=== PATIENT | male | born 1955 | race Caucasian/White ===

== ENCOUNTER → 2020-08-24 | Outpatient (CLI) | payer OTHER ==
[~2020-08-24] MED LIST: BYSTOLIC5 MG PO; FINASTERIDE PO; FINASTERIDE5 MG PO; TESTOPEL75 MG
== END ==
LOC: SLEEP 18:23
PROVIDERS: ATTEND Otolaryngology
DX: G47.33 Obstructive sleep apnea (adult) (pediatric) (principal); Z11.59 Encounter for screening for other viral diseases
CPT/HCPCS: 95806; U0002

== ENCOUNTER 2021-01-21 18:30 | Inpatient (IN) | payer OTHER ==
[~2021-01-21] VITALS: Ht 193 cm; Wt 141.6 kg
[2021-01-21] MEDS ORDERED: LEVOTHYROXINE50 MCG PO (18:48)
[2021-01-21] MEDS ORDERED: AMLODIPINE BESY10 MG PO (18:48)
[2021-01-21] MEDS ORDERED: HYDROCHLOROTHIA50 MG (18:48)
[2021-01-21] MEDS ORDERED: SODIUM CHLORIDE 0.9% 1000ML 1,000 ML IV STA (20:27)
[2021-01-21] MEDS ORDERED: METHYLPREDNISOLONE SOD SUCC 125 MG/2ML VIAL IV ONE (20:30)
[2021-01-21] MEDS ORDERED: CEFTRIAXONE SOD 1 GM/50 ML BAG IV ONE (20:30)
[2021-01-21] MEDS ORDERED: CEFTRIAXONE SOD 1 GM VIAL ONE (20:38)
[2021-01-21] MEDS ORDERED: SODIUM CHLORIDE 0.9% 50ML 50 ML ONE (20:39)
[2021-01-21] MEDS ORDERED: METHYLPREDNISOLONE SOD SUCC 125 MG/2ML VIAL ONE (20:42)
[2021-01-21] MEDS ORDERED: ACETAMINOPHEN 325 MG TAB PO ONE (20:45)
[2021-01-21] MEDS ORDERED: CEFTRIAXONE SOD 1 GM in SODIUM CHLORIDE 0.9% 50ML 50 ML IV ONE (20:45)
[2021-01-21] MEDS ORDERED: ONDANSETRON HCL INJ 2MG/ML 2ML 2 MG/ML VIAL IV PRN (21:00)
[2021-01-21] MEDS: CEFTRIAXONE SOD 1 GM in SODIUM CHLORIDE 0.9% 50ML 50 ML IV SCH (21:15)
[2021-01-21] MEDS ORDERED: CEFTRIAXONE SOD 1 GM/50 ML BAG IV SCH (21:15)
[2021-01-21] MEDS ORDERED: ACETAMINOPHEN 325 MG TAB ONE (21:16)
[2021-01-21 22:30] VITALS: BP 159/84
[2021-01-21] MEDS: SODIUM CHLORIDE 0.9% 1000ML 1,000 ML IV SCH (22:40)
[2021-01-21] MEDS ORDERED: LEVOTHYROXINE75 MCG PO (23:32)
[2021-01-21] MEDS ORDERED: XYOSTED100 MG/0.5 SC (23:32)
[2021-01-21] MEDS ORDERED: MONTELUKAST SOD10 MG PO (23:32)
[2021-01-22] VITALS (7 sets, daily range): BP systolic 127–154; BP diastolic 75–95
[2021-01-22] MEDS: SODIUM CHLORIDE 0.9% 1000ML 1,000 ML IV SCH (06:13)
[2021-01-22] MEDS ORDERED: HYDROCHLOROTH12.5 MG PO (07:10)
[2021-01-22 07:43] LABS: HEMATOCRIT 46.1 % (38.2-49.6); HEMOGLOBIN 14.9 g/dL (14.0-18.0); LYMPHOCYTES # (AUTO) 0.3 (1.0-3.2); LYMPHOCYTES % 17.3 % (18.0-39.1); MEAN CORPUSCULAR HEMOGLOBIN 26.1 pg (28-32); MEAN CORPUSCULAR HGB CONC 32.3 g/dL (31-35); MEAN CORPUSCULAR VOLUME 80.9 fL (81-99); MONOCYTES # (AUTO) 0.2 (0.2-0.8); MONOCYTES % 10.7 % (4.4-11.3); NEUTROPHILS # (AUTO) 1.1 (2.1-6.9); NEUTROPHILS % 70.7 % (38.7-80.0); PLATELET COUNT 174 x10e3/uL (140-360); RED CELL DISTRIBUTION WIDTH 13.3 % (11.7-14.4)
[2021-01-22 08:00] LABS: ALANINE AMINOTRANSFERASE 33 IU/L (0-55); ALBUMIN/GLOBULIN RATIO 0.8 (0.8-2.0); ALKALINE PHOSPHATASE 75 IU/L (40-150); ANION GAP 16.2 mmol/L (8-16); BLOOD UREA NITROGEN 14 mg/dL (7-26); BUN/CREATININE RATIO 18 (6-25); CALCIUM 8.4 mg/dL (8.4-10.2); CARBON DIOXIDE 31 mmol/L (22-29); CHLORIDE 91 mmol/L (98-107); EST GLOMERULAR FILTRATION RATE > 60 ML/MIN (60-); GLUCOSE 144 mg/dL (74-118); POTASSIUM 4.2 mmol/L (3.5-5.1); SODIUM 134 mmol/L (136-145)
[2021-01-22] MEDS ORDERED: ACETAMINOPHEN 325 MG TAB PO PRN (11:15)
[2021-01-22] MEDS ORDERED: FINASTERIDE 5 MG TAB PO SCH (11:30)
[2021-01-22] MEDS: AZITHROMYCIN 500MG/NS 250 ML 250 ML IV SCH (12:13)
[2021-01-22] MEDS: LEVOTHYROXINE SODIUM 75 MCG TAB PO SCH (12:14)
[2021-01-22] MEDS: AMLODIPINE BESYLATE 10 MG TAB PO SCH (12:14)
[2021-01-22] MEDS ORDERED: REMDESIVIR 200MG/NS 100ML 200 MG in SODIUM CHLORIDE 0.9% 100 ML 100 ML IV ONE (12:30)
[2021-01-22] MEDS: ENOXAPARIN SOD INJ 40 MG/0.4 ML SYR SC SCH ×2 (12:30→21:00)
[2021-01-22] MEDS ORDERED: ZOLPIDEM TARTRATE 5 MG TAB PO PRN (21:00)
[2021-01-22] MEDS: MONTELUKAST SODIUM 10 MG TAB PO SCH (21:18)
[2021-01-22] MEDS: CEFTRIAXONE SOD 1 GM in SODIUM CHLORIDE 0.9% 50ML 50 ML IV SCH (21:18)
[2021-01-23] VITALS (8 sets, daily range): BP systolic 115–147; BP diastolic 77–93
[2021-01-23] MEDS: LEVOTHYROXINE SODIUM 75 MCG TAB PO SCH (05:41)
[2021-01-23 05:54] LABS: BASOPHILS % 0.4 % (0.0-1.0); HEMATOCRIT 43.8 % (38.2-49.6); HEMOGLOBIN 14.1 g/dL (14.0-18.0); LYMPHOCYTES # (AUTO) 0.4 (1.0-3.2); LYMPHOCYTES % 7.5 % (18.0-39.1); MEAN CORPUSCULAR HEMOGLOBIN 26.2 pg (28-32); MEAN CORPUSCULAR HGB CONC 32.2 g/dL (31-35); MEAN CORPUSCULAR VOLUME 81.3 fL (81-99); MONOCYTES # (AUTO) 0.8 (0.2-0.8); MONOCYTES % 15.5 % (4.4-11.3); NEUTROPHILS # (AUTO) 4.1 (2.1-6.9); NEUTROPHILS % 75.7 % (38.7-80.0); PLATELET COUNT 187 x10e3/uL (140-360); RED BLOOD COUNT 5.39 x10e6/uL (4.3-5.7); RED CELL DISTRIBUTION WIDTH 13.2 % (11.7-14.4)
[2021-01-23 06:03] LABS: ANION GAP 11.7 mmol/L (8-16); BLOOD UREA NITROGEN 14 mg/dL (7-26); BUN/CREATININE RATIO 20 (6-25); CALCIUM 8.1 mg/dL (8.4-10.2); CARBON DIOXIDE 33 mmol/L (22-29); CHLORIDE 95 mmol/L (98-107); EST GLOMERULAR FILTRATION RATE > 60 ML/MIN (60-); GLUCOSE 124 mg/dL (74-118); POTASSIUM 3.7 mmol/L (3.5-5.1); SODIUM 136 mmol/L (136-145)
[2021-01-23 06:29] LABS: THYROID STIMULATING HORMONE 0.954 uIU/mL (0.350-4.940)
[2021-01-23] MEDS: ENOXAPARIN SOD INJ 40 MG/0.4 ML SYR SC SCH ×2 (08:00→20:42)
[2021-01-23] MEDS: AMLODIPINE BESYLATE 10 MG TAB PO SCH (08:00)
[2021-01-23] MEDS: FAMOTIDINE 20 MG TAB PO SCH ×2 (08:00→17:28)
[2021-01-23] MEDS: DEXAMETHASONE SOD PHOS 10 MG/1 ML VIAL IV SCH (08:00)
[2021-01-23] MEDS: AZITHROMYCIN 500MG/NS 250 ML 250 ML IV SCH (11:50)
[2021-01-23] MEDS: REMDESIVIR 100MG/NS 100ML 100 MG in SODIUM CHLORIDE 0.9% 100 ML 100 ML IV SCH (13:30)
[2021-01-23] MEDS: CEFTRIAXONE SOD 1 GM in SODIUM CHLORIDE 0.9% 50ML 50 ML IV SCH (20:42)
[2021-01-23] MEDS: MONTELUKAST SODIUM 10 MG TAB PO SCH (20:42)
[2021-01-24] VITALS (9 sets, daily range): BP systolic 117–141; BP diastolic 70–92
[2021-01-24 05:05] LABS: HEMOGLOBIN 14.5 g/dL (14.0-18.0); LYMPHOCYTES # (AUTO) 0.4 (1.0-3.2); MEAN CORPUSCULAR HEMOGLOBIN 26.6 pg (28-32); MEAN CORPUSCULAR HGB CONC 32.2 g/dL (31-35); MEAN CORPUSCULAR VOLUME 82.4 fL (81-99); MONOCYTES # (AUTO) 0.5 (0.2-0.8); MONOCYTES % 13.9 % (4.4-11.3); NEUTROPHILS # (AUTO) 2.7 (2.1-6.9); NEUTROPHILS % 75.3 % (38.7-80.0); PLATELET COUNT 209 x10e3/uL (140-360); RED BLOOD COUNT 5.46 x10e6/uL (4.3-5.7); RED CELL DISTRIBUTION WIDTH 13.4 % (11.7-14.4)
[2021-01-24 05:37] LABS: ALANINE AMINOTRANSFERASE 29 IU/L (0-55); ALBUMIN 2.9 g/dL (3.5-5.0); ALKALINE PHOSPHATASE 61 IU/L (40-150); ANION GAP 12.9 mmol/L (8-16); BLOOD UREA NITROGEN 14 mg/dL (7-26); BUN/CREATININE RATIO 20 (6-25); CALCIUM 8.3 mg/dL (8.4-10.2); CARBON DIOXIDE 32 mmol/L (22-29); CHLORIDE 98 mmol/L (98-107); CREATININE, SERUM 0.69 mg/dL (0.72-1.25); EST GLOMERULAR FILTRATION RATE > 60 ML/MIN (60-); GLUCOSE 124 mg/dL (74-118); POTASSIUM 3.9 mmol/L (3.5-5.1); SODIUM 139 mmol/L (136-145)
[2021-01-24] MEDS: LEVOTHYROXINE SODIUM 75 MCG TAB PO SCH (06:10)
[2021-01-24] MEDS: DEXAMETHASONE SOD PHOS 10 MG/1 ML VIAL IV SCH (08:32)
[2021-01-24] MEDS: ENOXAPARIN SOD INJ 40 MG/0.4 ML SYR SC SCH ×2 (08:32→21:00)
[2021-01-24] MEDS: FAMOTIDINE 20 MG TAB PO SCH ×2 (08:32→16:05)
[2021-01-24] MEDS: AMLODIPINE BESYLATE 10 MG TAB PO SCH (08:32)
[2021-01-24 10:05] LABS: LYMPHOCYTES % (MANUAL) 2 % (19-48); MONOCYTES % (MANUAL) 10 % (3.4-9.0); NEUTROPHILS % (MANUAL) 81 % (40-74); NUCLEATED RED BLOOD CELLS 1
[2021-01-24 10:06] LABS: PLATELET ESTIMATE ADEQUATE; PLATELET MORPHOLOGY COMMENT NORMAL; RBC MORPHOLOGY COMMENT NORMAL
[2021-01-24] MEDS: REMDESIVIR 100MG/NS 100ML 100 MG in SODIUM CHLORIDE 0.9% 100 ML 100 ML IV SCH (11:40)
[2021-01-24] MEDS: AZITHROMYCIN 500MG/NS 250 ML 250 ML IV SCH (12:47)
[2021-01-24] MEDS: MONTELUKAST SODIUM 10 MG TAB PO SCH (21:00)
[2021-01-24] MEDS: CEFTRIAXONE SOD 1 GM in SODIUM CHLORIDE 0.9% 50ML 50 ML IV SCH (21:15)
[2021-01-25] VITALS (8 sets, daily range): BP systolic 126–142; BP diastolic 76–95
[2021-01-25] MEDS: LEVOTHYROXINE SODIUM 75 MCG TAB PO SCH (06:00)
[2021-01-25] MEDS: DEXAMETHASONE SOD PHOS 10 MG/1 ML VIAL IV SCH (09:02)
[2021-01-25] MEDS: CHOLECALCIFEROL 400 UNIT TAB PO SCH (09:02)
[2021-01-25] MEDS: ZINC SULFATE 220 MG CAP PO SCH ×2 (09:02→16:43)
[2021-01-25] MEDS: ENOXAPARIN SOD INJ 40 MG/0.4 ML SYR SC SCH ×2 (09:02→21:00)
[2021-01-25] MEDS: AMLODIPINE BESYLATE 10 MG TAB PO SCH (09:02)
[2021-01-25] MEDS: FAMOTIDINE 20 MG TAB PO SCH ×2 (09:02→16:43)
[2021-01-25] MEDS: ASCORBIC ACID 500 MG TAB PO SCH ×2 (09:02→16:43)
[2021-01-25] MEDS: AZITHROMYCIN 500MG/NS 250 ML 250 ML IV SCH (11:47)
[2021-01-25] MEDS: REMDESIVIR 100MG/NS 100ML 100 MG in SODIUM CHLORIDE 0.9% 100 ML 100 ML IV SCH (12:35)
[2021-01-25] MEDS: MONTELUKAST SODIUM 10 MG TAB PO SCH (21:00)
[2021-01-25] MEDS: CEFTRIAXONE SOD 1 GM in SODIUM CHLORIDE 0.9% 50ML 50 ML IV SCH (21:15)
[2021-01-26 04:35] VITALS: BP 140/97
[2021-01-26] MEDS: LEVOTHYROXINE SODIUM 75 MCG TAB PO SCH (05:46)
[2021-01-26 08:00] VITALS: BP 135/95
[2021-01-26] MEDS: ASCORBIC ACID 500 MG TAB PO SCH (08:29)
[2021-01-26] MEDS: ZINC SULFATE 220 MG CAP PO SCH (08:29)
[2021-01-26] MEDS: CHOLECALCIFEROL 400 UNIT TAB PO SCH (08:29)
[2021-01-26] MEDS: FAMOTIDINE 20 MG TAB PO SCH (08:29)
[2021-01-26] MEDS: DEXAMETHASONE SOD PHOS 10 MG/1 ML VIAL IV SCH (08:29)
[2021-01-26] MEDS: ENOXAPARIN SOD INJ 40 MG/0.4 ML SYR SC SCH (08:29)
[2021-01-26] MEDS: AMLODIPINE BESYLATE 10 MG TAB PO SCH (08:29)
[2021-01-26 09:03] VITALS: BP 135/95
[2021-01-26] MEDS: AZITHROMYCIN 500MG/NS 250 ML 250 ML IV SCH (10:20)
[2021-01-26] MEDS: REMDESIVIR 100MG/NS 100ML 100 MG in SODIUM CHLORIDE 0.9% 100 ML 100 ML IV SCH (11:30)
[2021-01-26] MEDS ORDERED: ASPIRIN ENTERI325 MG PO (11:50)
[2021-01-26] MEDS ORDERED: PROAIR HFA INH8.5 GM INH (11:50)
[2021-01-26 12:00] VITALS: BP 125/87
== END 2021-01-26 13:37 | disposition home or self-care (01) | DRG 871 ==
LOC: FSED 18:59 → ERHOLD 20:54 → IMCU 22:05
PROVIDERS: ADMIT Internal Medicine; ATTEND Internal Medicine
PROC: 8E0ZXY6 Isolation (ICD-10-PCS; principal; 2021-01-21)
DX: A41.89 Other specified sepsis (principal); U07.1 COVID-19; J12.82 Pneumonia due to coronavirus disease 2019; J96.01 Acute respiratory failure with hypoxia; R65.20 Severe sepsis without septic shock; E03.9 Hypothyroidism, unspecified; Z85.89 Personal history of malignant neoplasm of other organs and systems; I10 Essential (primary) hypertension; E66.9 Obesity, unspecified; Z68.38 Body mass index [BMI] 38.0-38.9, adult; Z96.653 Presence of artificial knee joint, bilateral
CPT/HCPCS: 36415; 71260; 80048; 80053; 83036; 84443; 84484; 85025; 87040; 99285; J0456; J0696; J1100; J1650; J2930; J7030; U0002